=== PATIENT | male | born 1945 | race Caucasian/White ===

== ENCOUNTER 2018-07-12 07:30 | Inpatient (IN) ==
[2018-07-08 18:30] LABS: Basophils # (Auto) 0 K/mcL (0.0-0.3); Basophils % (Auto) 0.6 % (0.0-2.0); Eosinophils # (Auto) 0.3 K/mcL (0.0-0.7); Granulocytes % (Auto) 57.5 % (38.0-78.0); Lymphocytes # (Auto) 1.7 K/mcL (1.5-4.8); Lymphocytes % (Auto) 24.6 % (15.5-49.0); Mean Cell Volume 89.5 fL (80.0-100.0); Mean Corpuscular HGB Conc 34.4 g/dL (31.0-36.0); Mean Corpuscular Hemoglobin 30.7 pg (26.0-34.0); Monocytes # (Auto) 0.9 K/mcL (0.1-0.9); Monocytes % (Auto) 13.3 % (1.0-12.0); Platelet Count 247 K/mcL (140-440); Red Cell Distribution Width 14.2 % (11.5-14.5)
[2018-07-08 19:02] LABS: Blood Urea Nitrogen 16 mg/dl (8-23)
[2018-07-08 20:32] LABS: Appearance,Urine CLEAR; Bilirubin,Urine NEG (NEG); Color,Urine YELLOW; Glucose,Urine (UA) NEGATIVE (NEG); Leukocyte Esterase,Urine NEG /uL (NEG); Protein,Urine NEG (NEG); Urine Blood NEG mg/dL (<0.03); Urobilinogen,Urine NEG (NEG)
[~2018-07-12 07:30] MED LIST: 0.9 % SODIUM CHLORIDE 9 ML, KETOROLAC 30 MG, ROPIVACAINE HCL/PF 49.5 ML, EPINEPHrine 0.... IJ SCH; ACETAMINOPHEN 500 MG TABLET PO SCH; CELECOXIB 200 MG CAPSULE PO SCH; PREGABALIN 75 MG CAPSULE PO SCH; ceFAZolin 1 GM VIAL IV SCH; oxyCODONE 10 MG TAB.ER.12H PO SCH
[2018-07-12] MEDS ORDERED: MAGNESIUM HYDROXIDE 30 ML ORAL.SUSP PO PRN (10:58)
[2018-07-12] MEDS ORDERED: POLYETHYLENE GLYCOL 3350 17 GM PACKET PO PRN (10:58)
[2018-07-12] MEDS ORDERED: BISACODYL 10 MG SUPP.RECT PR PRN (10:58)
[2018-07-12] MEDS ORDERED: TRANEXAMIC ACID 1,000 MG/10 ML VIAL IV SCH (10:58)
[2018-07-12] MEDS ORDERED: FLEETS ADULT ENEMA PR PRN (10:58)
[2018-07-12] MEDS ORDERED: ONDANSETRON 4 MG/2 ML VIAL IV PRN ×2 (10:58→11:27)
[2018-07-12] MEDS ORDERED: BENZOCAINE/MENTHOL 1 LOZENGE PO PRN (10:58)
[2018-07-12] MEDS ORDERED: HYDROcodone/APAP 10/325MG TABLET PO PRN (10:58)
[2018-07-12] MEDS ORDERED: ACETAMINOPHEN 325 MG TABLET PO PRN (10:58)
[2018-07-12] MEDS ORDERED: HYDROmorphone 2 MG/ML VIAL IV PRN (10:58)
--- NOTE | 2018-07-12 10:58 | Brief Operative Note ---
Date of procedure: 07/12/18 Pre-op diagnosis: right knee djd Post-op diagnosis: same Procedure: right tka with robotics Grafts/Implants: Yes Anesthesia: GETA Surgeon: Aman Nunez Stonehand: Vasquez Luciano Estimated blood loss (cc): 50 Tourniquet Time (Minutes): 55 Specimens Removed/Pathology: none sent Condition: stable Disposition: PACU
[2018-07-12] MEDS ORDERED: PROPOFOL 200 MG/20 ML VIAL IV ONE (11:00)
[2018-07-12] MEDS ORDERED: LIDOCAINE HCL/PF 100 MG/5 ML SYRINGE IV ONE (11:00)
[2018-07-12] MEDS ORDERED: DEXAMETHASONE 10 MG/ML VIAL IV ONE (11:00)
[2018-07-12] MEDS ORDERED: TRANEXAMIC ACID 1,000 MG/10 ML VIAL IV ONE (11:00)
[2018-07-12] MEDS ORDERED: MIDAZOLAM 5 MG/5 ML VIAL IV ONE (11:00)
[2018-07-12] MEDS ORDERED: ONDANSETRON 4 MG/2 ML VIAL IV ONE (11:00)
[2018-07-12] MEDS ORDERED: ePHEDrine 50 MG/ML AMPUL IV ONE (11:00)
[2018-07-12] MEDS ORDERED: ROPIVACAINE HCL/PF 20 ML VIAL IJ ONE (11:00)
[2018-07-12] MEDS ORDERED: GLYCOPYRROLATE 0.2 MG/ML VIAL IV ONE (11:00)
[2018-07-12] MEDS ORDERED: GENTAMICIN SULFATE 800 MG/20 ML VIAL IR ONE (11:18)
[2018-07-12] MEDS ORDERED: ePHEDrine 50 MG/ML AMPUL IV PRN (11:27)
[2018-07-12] MEDS ORDERED: ATROPINE SULFATE 0.4 MG/ML VIAL IV PRN (11:27)
[2018-07-12] MEDS ORDERED: FLUMAZENIL 0.1 MG/ML ML IV PRN (11:27)
[2018-07-12] MEDS ORDERED: PROMETHAZINE 25 MG/ML VIAL IV PRN (11:27)
[2018-07-12] MEDS ORDERED: fentaNYL 100 MCG/2 ML VIAL IV PRN (11:27)
[2018-07-12] MEDS ORDERED: IPRATROPIUM/ALBUTEROL 3 ML AMPUL.NEB NEB PRN (11:27)
[2018-07-12] MEDS ORDERED: diphenhydrAMINE 50 MG/ML VIAL IV PRN (11:27)
[2018-07-12] MEDS ORDERED: METHOCARBAMOL 1,000 MG/10 ML VIAL IV PRN (11:27)
[2018-07-12] MEDS ORDERED: METOPROLOL TARTRATE 5 MG/5 ML VIAL IV PRN (11:27)
[2018-07-12] MEDS ORDERED: NALOXONE HCL 0.4 MG/ML VIAL IV PRN (11:27)
[2018-07-12] MEDS ORDERED: MEPERIDINE 25 MG/ML SYRINGE IV PRN (11:27)
[2018-07-12] MEDS ORDERED: LACTATED RINGERS 1,000 ML IV SCH (11:30)
--- NOTE | 2018-07-12 12:52 | Operative Note ---
DATE OF OPERATION: 07/12/2018 PREOPERATIVE DIAGNOSIS: Right knee degenerative arthritis, severe. POSTOPERATIVE DIAGNOSIS: Right knee degenerative arthritis, severe. PROCEDURE: Right total knee arthroplasty using the robot. SURGEON: Aman Nunez MD CUSTOM BOW MAKER: Vasquez Luciano PA-C ANESTHESIA: General anesthesia. COMPLICATIONS: None. IMPLANTS: Size 7 femur and size 7 tibial baseplate with a 9 mm poly, a 39 mm patellar button. DESCRIPTION OF PROCEDURE: The patient was brought to the operating room and put to sleep with general anesthesia. Once asleep, the patient had the right leg sterilely prepped and draped in the usual sterile fashion. We confirmed this was the operative site with a timeout. Preop antibiotics were given, and tranexamic acid. We then made a midline incision, mid vastus approach. We placed pins above and below the knee, registered center hip rotation, registered medial and lateral malleoli and registered 30 points on the femur and the tibia. We then balanced the knee at 90 and 15 degrees. Once perfectly balanced we adjusted the implants for the patient's contracture of 6 degrees, varus malalignment of 5 degrees and alignment of the patella. We then proceeded with the case. We brought the robot in and made our tibial cut and our femoral cuts. We tried the components, a size 7 tibial baseplate and a size 7 femur. The tibial baseplate rotation was set by the robot to optimize coverage, rotation and tracking of the patella. A 9 mm poly was inserted. This balanced very nicely throughout. We irrigated thoroughly and then placed a 39 mm patellar button. Once this was done, we then cemented all these components into place. The patella seemed to track well. We cemented into place a size 7 tibial baseplate, size 7 femur and a 9 mm poly. Excess cement was removed. We kept the knee at 45 degrees. We then implanted the patella in full extension. This was a 39 mm patellar button. Its total thickness prior to the surgery was 24 mm. We cut this to 15 mm to restore alignment and thickness. We irrigated thoroughly and then closed the mid vastus approach after deflating the tourniquet at 43 minutes. The mid vastus approach was closed with #1 Stratafix suture x2. Skin was closed with #1 Stratafix and adhesive closure. The patient tolerated this well without complication. MENDOZA:jason Job ID: [id number] Doc ID: [id number] Aman Nunez MD
[2018-07-12] MEDS: KETOROLAC 15 MG/ML VIAL IV SCH ×2 (13:53→17:16)
[2018-07-12] MEDS: 0.9 % SODIUM CHLORIDE 10 ML SYRINGE IV SCH (14:00)
[2018-07-12] MEDS: metFORMIN 500 MG TABLET PO SCH (17:16)
[2018-07-12] MEDS: 0.45 % SODIUM CHLORIDE 1,000 ML IV SCH (17:16)
--- NOTE | 2018-07-12 17:28 | XRay Report ---
CLINICAL INFORMATION: Post-Op Total Knee COMPARISON: None. FINDINGS: Total knee prostheses is anatomically aligned. No osseous abnormality. Periarticular soft tissue swelling seen as expected IMPRESSION: Negative Interpreted and Authenticated by: Francisco Javier Rangel 07/12/18
[2018-07-12] MEDS ORDERED: TEMAZEPAM 15 MG CAPSULE PO PRN (21:00)
[2018-07-12] MEDS ORDERED: ASPIRIN 325 MG ENTERIC COATED TABLET PO SCH (21:00)
[2018-07-12] MEDS ORDERED: SENNOSIDES 1 TABLET PO SCH (21:00)
[2018-07-12] MEDS: ATORVASTATIN 20 MG TABLET PO SCH (21:51)
[2018-07-12] MEDS: DOCUSATE SODIUM 100 MG CAPSULE PO SCH (21:54)
[2018-07-13] MEDS: ATORVASTATIN 20 MG TABLET PO SCH
[2018-07-13] MEDS: PROPAFENONE 150 MG TABLET PO SCH ×2 (00:04→08:05)
[2018-07-13] MEDS: 0.9 % SODIUM CHLORIDE 10 ML SYRINGE IV SCH ×2 (00:05→05:24)
[2018-07-13] MEDS: KETOROLAC 15 MG/ML VIAL IV SCH ×3 (00:26→11:20)
[2018-07-13] MEDS: 0.45 % SODIUM CHLORIDE 1,000 ML IV SCH ×2 (02:44→09:06)
[2018-07-13] MEDS ORDERED: LEVOTHYROXINE 50 MCG TABLET PO SCH (07:30)
--- NOTE | 2018-07-13 07:56 | Orthopedic Progress Note ---
Subjective Patient information: Note initiated : 07/13/18 at 7:55 am Service Date, if different from initiated Date: [] Patient: Ralph Storey 72 y/o M admitted on 07/12/18 for Right TYESHA Total Knee Arthropasty. Chief Complaint: Pt is stable this morning on post operative day 2 without any significant concerns or complaints. Patients vital signs have remained stable. Patients dressing is dry and is grossly instact from a neurovascular and motor standpoint. Patients 10 point ROS is otherwise negative. [] Objective Vital signs: Vital Signs Temp Pulse Pulse Resp BP BP Pulse Ox 07/13/18 06:46 98.5 F 16 108/69 98 07/13/18 03:59 97.6 F 77 20 99/61 93 07/13/18 03:57 93 07/13/18 01:00 92 07/13/18 00:00 97.3 F 87 20 120/70 92 07/12/18 19:09 94 07/12/18 18:50 96.9 F L 100 H 20 112/75 90 07/12/18 15:56 128/92 97 07/12/18 15:45 140/89 91 07/12/18 15:15 142/90 93 07/12/18 14:45 162/98 92 07/12/18 14:30 178/105 91 07/12/18 14:15 175/106 92 07/12/18 14:00 184/105 92 07/12/18 13:45 64 169/97 93 07/12/18 13:30 97.4 F 65 12 180/88 96 07/12/18 13:25 64 12 180/90 96 07/12/18 13:15 65 12 180/94 97 07/12/18 13:05 66 13 182/98 96 07/12/18 12:55 76 12 183/99 99 07/12/18 12:45 76 15 177/95 100 07/12/18 12:40 75 75 13 168/99 100 07/12/18 12:35 77 12 146/90 99 07/12/18 12:30 97.2 F 86 15 115/74 100 07/12/18 09:13 96.8 F L 54 L 18 141/88 96 Intake and Output 07/12/18 07/13/18 07/13/18 21:59 05:59 13:59 Intake Total 400 / 400 1745 / 1745 Output Total 750 / 750 1475 / 1475 Balance -350 / -350 270 / 270 Intake: IV 945 / 945 Sodium Chloride 0.45% 1,000 ml 945 / 945 @ 100 mls/hr IV .Q10H [facility] Rx#: [id number] Oral 400 / 400 800 / 800 Output: Urine Catheter Amount 750 / 750 800 / 800 Void Amount 675 / 675 Other: Urine Appearance Clear Clear Straight Clear Clear Urine Color Bright Yellow Pale Bright Yellow Straight Pale Bright Yellow Urine Odor Normal Straight Normal Weight 191 lb Intake & Output: Intake & Output 07/12/18 07/13/18 07/13/18 21:59 05:59 13:59 Intake Total 400 / 400 1745 / 1745 Output Total 750 / 750 1475 / 1475 Balance -350 / -350 270 / 270 Weight 191 lb Intake: IV 945 / 945 Sodium Chloride 0.45% 1,000 ml 945 / 945 @ 100 mls/hr IV .Q10H [facility]NA[facility] Rx#: [id number] Oral 400 / 400 800 / 800 Output: Urine Catheter Amount 750 / 750 800 / 800 Void Amount 675 / 675 Other: Urine Appearance Clear Clear Straight Clear Clear Urine Color Bright Yellow Pale Bright Yellow Straight Pale Bright Yellow Urine Odor Normal Straight Normal Incision: Yes healing Incision clean and dry: Yes Dressing: Yes clean, Yes dry Weight bearing status: full Neurological exam IM: Yes motor sensory intact, Yes neurovascular intact Extremities exam IM: Yes Foot pink and warm, Yes neurovascular intact - Labs CBC & BMP: 07/13/18 05:45 07/08/18 15:06 Labs: Orthopedic Labs 07/12/18 07/08/18 09:23 15:06 POC PT 11.3 L PT 18.3 H POC INR 0.9 INR 1.5 H APTT 36 07/13/18 07/08/18 05:45 15:06 Hgb 13.5 Hct 37.0 L 39.4 L Assessment and Plan (1) Hx of total knee arthroplasty The patient has been educated regarding dressing care, Physical Therapy recommendations, home exercises, restrictions, and follow up appointments. The patient has had all necessary DME prescribed. The patient has remained relatively stable during their hospital course. Leave Dermabond patch intact until followup Status: Acute
--- NOTE | 2018-07-13 07:58 | Discharge Summary ---
Ortho Discharge - TKA - Patient Instructions Diet: Regular Diet Activity: activity as tolerated, weight bearing as tolerated Total Knee Protocol: For Total Knee: Start ROM ADÁN with stationary bike or rocking chair. Work on gaining full extension of knee. Posterior dislocation precautions provided. Hip abductor strengthening and gait training instructions provided. Apply Cryocuff as instructed. Dressing Care: May shower in 2 days - Problem Maintenance (1) Hx of total knee arthroplasty Status: Acute - Follow Up Plan Follow Up Appointments: Vasquez Luciano PA-C [Physician Mechanical Pencils Assembler] - 07/27/18 8:40 am Disposition: Home, Self-Care Prognosis: Good Rehab Potential: Good I certify that the patient requires SNF services: No Overall status at discharge: patient is progressing back to baseline - Orders For Discharge Prescriptions: Docusate Sodium [Colace] 100 mg PO BID #60 cap HYDROcodone/APAP 10/325MG [[place] 10-325Mg] 1 - 2 tab PO Q4HP PRN #75 tab PRN Reason: Pain Level 3-6
[2018-07-13] MEDS: DOCUSATE SODIUM 100 MG CAPSULE PO SCH (08:05)
[2018-07-13] MEDS: metFORMIN 500 MG TABLET PO SCH (08:05)
[2018-07-13] MEDS ORDERED: TAMSULOSIN 0.4 MG CAPSULE PO ONE (08:19)
[2018-07-13] MEDS ORDERED: LISINOPRIL 5 MG TABLET PO SCH (09:00)
[2018-07-13] MEDS ORDERED: FINASTERIDE 5 MG TABLET PO SCH (09:00)
[2018-07-13] MEDS ORDERED: RIVAROXABAN 20 MG TABLET PO SCH (18:00)
== END 2018-07-13 13:45 | disposition home or self-care (01) | DRG 470 ==
LOC: MEDSUR 08:52
PROVIDERS: ADMIT Orthopaedic Surgery; ATTEND Orthopaedic Surgery